=== PATIENT | female | born 1965 | race Caucasian/White ===

== ENCOUNTER 2018-03-06 16:41 | Emergency (ER) | payer OTHER, MEDICAID ==
[2018-03-06] MEDS: IBUPROFEN 600 MG TAB PO (17:26)
== END 2018-03-06 19:22 | disposition home or self-care (01) ==
LOC: FTE 16:41
DX: S99.922A Unspecified injury of left foot, initial encounter (principal); F17.210 Nicotine dependence, cigarettes, uncomplicated; W22.8XXA Striking against or struck by other objects, initial encounter; Y92.9 Unspecified place or not applicable
CPT/HCPCS: 73630; 73630-LT; 99283-25